=== PATIENT | male | born 2000 | race African-American/Black ===

== ENCOUNTER 2022-06-27 16:44 | Emergency (ER) | payer OTHER ==
[2022-06-27 17:15] VITALS: BP 113/70; PULSE 119; RESP 18; TEMP 98.4; BMI 22.1
[2022-06-27] MEDS ORDERED: cloZAPine 25 MG TABLET PO ONE (19:58)
[2022-06-27 21:03] LABS: BASO % 0.5 % (0-2.0); HEMATOCRIT 44.1 % (35.4-49); HEMOGLOBIN 15.3 GM/dL (11.7-16.9); LYMPH % 30.1 % (8-40); MCH 30.4 pg (25.7-33.7); MCHC 34.6 g/dl (32.0-35.9); MEAN CELL VOLUME 87.8 fl (80-96); MEAN PLT VOLUME 9.1 fl (7.5-11.1); MONO % 4.4 % (3.8-10.2); PLATELET COUNT 163 10^3/uL (134-434); RBC 5.02 M/mm3 (4.00-5.60); RDW 13.8 % (11.9-15.9); WHITE BLOOD COUNT 8.3 K/mm3 (4.0-10.0)
[2022-06-27 21:12] LABS: ALBUMIN 4.5 g/dl (3.4-5.0); CALCIUM 9.9 mg/dL (8.5-10.1)
[2022-06-27 21:16] LABS: CREATININE 1.2 mg/dL (0.55-1.3)
[2022-06-27 21:17] LABS: BILIRUBIN,TOTAL 0.6 mg/dL (0.2-1); TOT PROT 8.4 g/dl (6.4-8.2)
[2022-06-27] MEDS ORDERED: cloZAPine 100 MG TABLET PO ONE (21:30)
== END 2022-06-27 21:59 | disposition home or self-care (01) ==
LOC: JER 16:44
DX: Z76.0 Encounter for issue of repeat prescription (principal)
CPT/HCPCS: 36415; 80053; 85025; 99283-25